=== PATIENT | female | born 1990 ===

== ENCOUNTER → 2018-12-12 | Outpatient (CLI) | payer OTHER | LOC: GMAHI 10:20 | PROVIDERS: ATTEND Nurse Practitioner Family | DX: Z01.419 Encounter for gynecological examination (general) (routine) without abnormal findings (principal) ==

== ENCOUNTER → 2019-03-04 | Outpatient (CLI) | payer OTHER | LOC: GMAHI 16:55 | PROVIDERS: ATTEND Nurse Practitioner Family | DX: Z13.21 Encounter for screening for nutritional disorder (principal); R63.5 Abnormal weight gain; Z79.899 Other long term (current) drug therapy ==

== ENCOUNTER → 2020-04-12 | Outpatient (CLI) | payer OTHER | LOC: GMA MATASK 14:20 | PROVIDERS: ATTEND Family Medicine | DX: R00.2 Palpitations (principal) ==